=== PATIENT | male | born 1965 | race Caucasian/White ===

== ENCOUNTER → 2016-08-08 | Outpatient (CLI) | payer BC ==
[2016-08-08 10:44] LABS: EKG EKG PERFORMED
[2016-08-08 11:39] LABS: Appearance,Urine Clear (Clear); Basophils # (A) 0.1 k/uL (0-0.2); Basophils % (A) 1 %; Bilirubin,Urine Negative (Negative); CH 29.7; CHCM 33.5; Eosinophils # (A) 0.1 k/uL (0-0.7); Eosinophils % (A) 1 %; Glucose,Urine (UA) Negative (Negative); HCT 51.1 % (39.0-53.0); HDW 2.48; HGB 16.4 gm/dL (13.0-17.5); Ketones,Urine Negative (Negative); Leukocyte Esterase,Urine Negative (Negative); Luc % (Auto) 1; Lymphocytes # (A) 1.4 k/uL (1.0-4.8); Lymphocytes % (A) 19 %; MCH 28.6 pg (25.0-35.0); MCHC 32.1 g/dL (31.0-37.0); MCV 89.1 fL (80.0-100.0); Mean Platelet Volume 7.8; Monocytes # (A) 0.6 k/uL (0-1.0); Monocytes % (A) 8 %; Neutrophils # (A) 5.1 k/uL (1.3-7.7); Neutrophils % (A) 70 %; Nitrite,Urine Negative (Negative); PH, Urine 5.5 (5.0-8.0); Protein,Urine Negative (Negative); RBC 5.74 m/uL (4.30-5.90); Specific Gravity,Urine 1.019 (1.001-1.035); UA Billing (MACRO vs. MICRO) CHEM; Urobilinogen,Urine <2.0 mg/dL (<2.0); WBC 7.2 k/uL (3.8-10.6); WBC (Perox) 6.96
[2016-08-08 11:48] LABS: Prothrombin Time 10.5 sec (9.0-12.0)
[2016-08-08 12:01] LABS: ALT 41 U/L (21-72); AST 21 U/L (17-59); Alkaline Phosphatase 51 U/L (38-126); Anion Gap 12 mmol/L; Blood Urea Nitrogen 18 mg/dL (9-20); Calcium 9.9 mg/dL (8.4-10.2); Carbon Dioxide 25 mmol/L (22-30); Chloride 104 mmol/L (98-107); Glucose 104 mg/dL (74-99); Non-African American GFR(MDRD) >60 (>60 ml/min/1.73 sqM); Potassium 4.9 mmol/L (3.5-5.1); Sodium 141 mmol/L (137-145); Total Bilirubin 0.9 mg/dL (0.2-1.3); Total Protein 7.7 g/dL (6.3-8.2)
== END | disposition home or self-care (01) ==
LOC: LABPAT 10:32
PROVIDERS: ATTEND Orthopaedic Surgery Sports Medicine
DX: Z01.812 Encounter for preprocedural laboratory examination (principal); Z01.810 Encounter for preprocedural cardiovascular examination
CPT/HCPCS: 80053; 81003; 85025; 85610; 85730; 87070; 93005

== ENCOUNTER 2016-08-24 10:30 | Inpatient (IN) | payer BC ==
[2016-08-14 16:05] VITALS: BMI 31.9
[~2016-08-24 10:30] MED LIST: ACETAMINOPHEN TAB 500 MG TAB PO ONE; DEXAMETHASONE SOD PHOSPHATE 10 MG/ML 1 ML VIAL IV ONE; HYDROmorphone 1 MG/ML 1 ML SYRINGE IVP PRN; MELOXICAM 7.5 MG TAB PO ONE; MIDAZOLAM 2 MG/2 ML VIAL IV PRN; ONDANSETRON 4 MG/2 ML VIAL IVP ONE; ROPIVACAINE 246.25 MG, EPINEPHrine 0.5 MG, KETOROLAC 30 MG, cloNIDine HCL/PF 80 MCG, WA... MISCELLANE ONE; TRANEXAMIC ACID 1,000 MG in SODIUM CHLORIDE 0.9% 100 ML IVPB ONE; ceFAZolin 2 GM in SODIUM CHLORIDE 0.9% 100 ML IVPB ONE
[2016-08-24] MEDS: LACTATED RINGERS 1,000 ML IV SCH ×2 (11:16→20:55)
[2016-08-24] MEDS ORDERED: PROPOFOL 10 MG/ML 20 ML VIAL IV ONE (12:33)
[2016-08-24] MEDS ORDERED: LIDOCAINE 1% INJ 10MG/ML (20 ML MDV) ONE (12:33)
[2016-08-24] MEDS ORDERED: TRANEXAMIC ACID 1,000 MG/10 ML VIAL ONE (12:33)
[2016-08-24] MEDS ORDERED: SODIUM CHLORIDE 0.9% 100 ML BAG ONE (12:33)
[2016-08-24] MEDS ORDERED: MIDAZOLAM 2 MG/2 ML VIAL ONE (12:33)
[2016-08-24] MEDS ORDERED: fentaNYL (PF) 50 MCG/ML 2 ML AMP ONE (12:33)
[2016-08-24] MEDS ORDERED: ceFAZolin 3,000 MG in SODIUM CHLORIDE 0.9% IRRIGATIO 3,000 ML IRRIGATION ONE (13:18)
[2016-08-24] MEDS ORDERED: LACTATED RINGERS 1,000 ML IV ONE (13:23)
[2016-08-24] MEDS ORDERED: NALOXONE 0.4 MG/ML 1 ML VIAL IV PRN (14:41)
[2016-08-24] MEDS ORDERED: PROMETHAZINE INJ 6.25 MG in SODIUM CHLORIDE 0.9% 50 ML IVPB PRN (14:41)
[2016-08-24] MEDS ORDERED: METOCLOPRAMIDE 5 MG/ML 2 ML VIAL IVP PRN (14:41)
[2016-08-24] MEDS ORDERED: NALBUPHINE 10 MG/ML AMPUL IV PRN (14:41)
[2016-08-24] MEDS ORDERED: MORPHINE SULFATE 4 MG/ML SYRINGE IVP PRN (14:41)
[2016-08-24] MEDS ORDERED: MAGNESIUM HYDROXIDE 2,400 MG/10 ML CUP PO PRN (14:48)
[2016-08-24] MEDS ORDERED: TEMAZEPAM 15 MG CAP PO PRN (14:48)
[2016-08-24] MEDS ORDERED: ACETAMINOPHEN TAB 325 MG TAB PO PRN (14:48)
[2016-08-24] MEDS ORDERED: traMADol 50 MG TAB PO PRN (14:48)
[2016-08-24] MEDS ORDERED: ONDANSETRON 4 MG/2 ML VIAL IVP PRN (14:48)
[2016-08-24] MEDS ORDERED: HYDROmorphone 1 MG/ML 1 ML SYRINGE IVP PRN ×3 (14:48)
[2016-08-24] MEDS ORDERED: BISACODYL 10 MG SUPP RECTAL PRN (14:48)
[2016-08-24] MEDS ORDERED: HYDROcodone/APAP 7.5-325MG 1 EACH TAB PO PRN ×2 (14:48)
[2016-08-24] MEDS ORDERED: DIAZEPAM 5 MG TAB PO PRN (14:48)
[2016-08-24] MEDS ORDERED: NA PHOS,M-B/NA PHOS,DI-BA 133 ML ENEMA RECTAL PRN (14:48)
--- NOTE | 2016-08-24 15:15 | XR ---
EXAMINATION TYPE: XR knee limited LT DATE OF EXAM: 08/24/2016 3:09 PM COMPARISON: NONE HISTORY: Post op FINDINGS: There is a prosthetic knee in near anatomic alignment. There is soft tissue edema and emphysema. IMPRESSION: 1. Postoperative change. Appears in near-anatomic alignment
[2016-08-24] MEDS: diphenhydrAMINE 50 MG/ML 1 ML VIAL IVP PRN ×2 (17:00→23:01)
--- NOTE | 2016-08-24 19:19 | PN ---
DATE OF SERVICE: 08/24/2016 Lowell is status post left total knee arthroplasty. He is resting comfortably in the bed, up on the floor. His pain is very well controlled. He has intact flexion, extension. Inversion, eversion at the ankle is intact. Flexion-extension of all of his toes. He has an intact lateral, medial, plantar and first dorsal web space sensation. He has a palpable 2+ posterior tibial pulse. IMPRESSION: Status post left total knee arthroplasty. RECOMMENDATIONS: Lowell is doing quite well early on. We will continue with DVT prophylaxis. He will start with physical therapy tomorrow. He will get standard postoperative dose of Ancef. All of his questions and his 's questions were answered to their satisfaction. We will continue to follow.
[2016-08-24] MEDS: ceFAZolin 2 GM in SODIUM CHLORIDE 0.9% 100 ML IVPB SCH (20:54)
[2016-08-24] MEDS ORDERED: SENNOSIDES-DOCUSATE SODIUM 1 EACH TAB PO SCH (21:00)
[2016-08-24] MEDS: ASPIRIN 325 MG TAB PO SCH (22:05)
--- NOTE | 2016-08-24 23:04 | OP ---
DATE OF SERVICE: 08/24/2016 SURGEON: AMANDA GODDARD MD DEAN OF STUDENT SERVICES: TAYLOR RAYA PA-C PREOPERATIVE DIAGNOSIS: Left knee osteoarthrosis. POSTOPERATIVE DIAGNOSIS: Left knee osteoarthrosis. OPERATION: Left total knee arthroplasty. ANESTHESIA: Spinal with sedation. ESTIMATED BLOOD LOSS: 100 mL TOURNIQUET TIME: 64 minutes @250 mmHg. SPECIMENS REMOVED: COMPLICATIONS: None apparent. DRAINS: None. DISPOSITION: Post-Anesthesia Care Unit. OPERATIVE FINDINGS: INDICATIONS: Lowell is a 51-year-old male with long-standing history of left knee pain. History and physical examination are consistent with advanced left knee osteoarthrosis. He has been through significant nonoperative treatment as well as operative treatment quite a bit of time ago. Further treatment options were discussed, and he decided to go forward with a left total knee arthroplasty. The risks of the procedure were discussed with him in detail. These risks include but are not limited to risk of infection, nerve damage, bleeding, pain, and a small risk of deep vein thrombosis which could lead to fatal pulmonary embolism. There is also a risk of loosening of the implant which could require revision operation. The patient understands these risks. All of his questions were answered to his satisfaction. Appropriate informed consent was obtained. DESCRIPTION OF THE PROCEDURE: The patient was identified in the preoperative holding area. Surgical site was marked by both the patient and myself. He was given 2 grams of Ancef IV for prophylactic purposes. He was then transferred to the operative suite, where he was placed supine on the operating table. Spinal anesthetic was then administered and dosed by the anesthesia department without apparent complication. Examination under anesthesia was then performed. He had full extension. He had 105 degrees of flexion, and the medial collateral ligament, lateral collateral ligament and posterior cruciate ligaments were stable. Tourniquet was then placed high on the left upper thigh, well padded in preparation for surgery. The patient's left lower extremity was then prepped and draped in the usual sterile fashion. Standard surgical pause was then undertaken to ensure that we were operating on the correct site and that appropriate preoperative antibiotics had been given. All staff in the room were in agreement, and we proceeded. The outlines of the patella were then marked with a surgical pen. A planned 12 cm vertical incision centered over the patella was then marked with a surgical pen. The leg was then exsanguinated with an Esmarch dressing. The knee was then flexed and tourniquet inflated to 250 mmHg. The total tourniquet time for the procedure was 64 minutes. Incision was then made with a 10 blade scalpel. Dissection was carried down sharply to the overlying fascia. Great care was taken to minimize the skin flaps. The knee was then exposed using a standard medial parapatellar approach. A small cuff of quadriceps tendon was then left for suturing. He was in a bit of varus preoperatively. A standard medial release was then made. Superficial medial collateral ligament was dissected off the bone around to the posterior aspect of the proximal tibia. The medial meniscus was also excised as well. The lateral meniscus was also released anteriorly. The leg was then externally rotated. The patella was then everted and the knee was flexed. Retractors were then placed to protect the collateral ligaments. I then proceeded to remove the infrapatellar fat pad. This was excised sharply tangentially with the fibers of the patellar tendon. I then proceeded to remove the peripheral osteophytes. This was done with a rongeur. I then proceeded with the distal I then proceeded with the distal femoral resection. He did have near-full extension. A planned 9 mm resection was then done. The femoral canal was then entered in the midline of the femur approximately 10 mm anterior to the origin of the posterior cruciate ligament. The karen was then advanced down the center of the femur and the karen placed intramedullary. Based on preoperative radiographs, the angle between the anatomic and mechanical axis of the femur was approximately 4 to 5 degrees. The valgus angle of the distal femoral cutting guide was then set at 4 degrees for the left knee. The distal femoral cutting guide was then advanced over the intramedullary karen. This was seated firmly against the femur. I then, as mentioned, planned to take 9 mm off the distal femur. The cutting block was then secured onto the femur with pins. Jig was then removed and the distal femoral cut was made through the slot of the block. The pins were then removed and the distal femoral cutting block was removed. The accuracy of the distal femoral cuts was checked with 2 flat bars. I then proceeded with femoral sizing. The posterior referencing sizing guide was held firmly against the resected distal surface of the femur. Posterior condyles were resting on the posterior plane of the guide. Sizing stylus was then placed on the anterior femur. The size was measured as a size 9. I then assessed for femoral rotation. The plan was for 3 degrees of external rotation. Three degrees of external rotation was placed onto the jig. These holes were then marked. I then confirmed the rotation by 3 separate methods. This was done using the epicondylar axis as well as Whitesides line and posterior referencing. It was deemed that the external rotation was proper. I then went forward with placing the femoral cutting block. This was placed over the previously placed pinholes. The florence wing was then placed onto the anterior slots to ensure that we would not notch the anterior femur with the anterior femoral cut. I then proceeded with the anterior femoral cut. This was flush with the anterior cortex of the femur. Posterior cuts were then made followed by the anterior chamfer cut and then the posterior chamfer cut. Cutting block was then removed. Throughout the resection, the collateral ligaments were protected with retractors. I then placed a trial size 9 femur. It fit very nice medial to lateral and fit flush with the distal end of the femur. The drill holes were then made. I then proceeded with the tibial cut. I planned for a cruciate-retaining knee. The guide was placed and set for varus, valgus and for slope. The height was set for approximately 2 mm resection from the medial tibial plateau, which was the lower side. I was happy with the alignment and the amount of resection. The cutting block was then pinned to the proximal tibia. The alignment karen was removed and the proximal tibia was resected with a reciprocating saw. Again this was done with retractors protecting the collateral ligaments as well as the posterior cruciate ligament. I then proceeded to evaluate the flexion and extension gaps. A 10 mm block was placed. The flexion and extension gaps were equal. I then proceeded with resection of the posterior osteophytes. There were very minimal posterior osteophytes. This was done using curved osteotome. This resected the posterior osteophytes, and the posterior capsule stripping was also done off the posterior aspect of the femur. The osteophytes were removed. I then proceeded with resection of the patella. The thickness of the patella was then measured using the caliper. The thickness was 24 mm. The thickness of the anticipated patellar dome was taken into account. Resection was then performed and confirmed to be equal in 4 quadrants using the caliper. Approximately 14 mm of bone remained after the resection. A 32 x 8.5 mm standard patellar trial was then placed. The holes were then drilled and the trial was then placed. I then proceeded with sizing the tibial plate. A size E tibial plate fit very nicely. I then placed a trial femur with tibial tray and the patellar button. A 10 mm trial tibial insert was also placed. The components fit very nicely. He had full extension and flexion. Extension and flexion gaps were equal and stable to both varus and valgus stress. The patella tracked appropriately. Tibial tray rotation was marked with a Bovie. T his was externally rotated properly. I then proceeded with the tibial preparation. I first drilled the femoral holes and removed the femoral component. The tibial tray was then set for proper external rotation as well as medial and lateral placement onto the tibia. It was then pinned into placed. I then proceeded with punching the keel. I then decided to proceed with cementing of all of our components. The knee was thoroughly irrigated with sterile saline solution via pulse lavage. The lateral genicular artery was identified and cauterized. All blood was removed from the bone of the tibia, femur and patella with pulse lavage. I then proceeded with cementing. Two packs of antibiotic bone cement were prepared on the back table by the surgical elastic knitter. I then proceeded with cementing of the tibia first. The cement was then cemented into the keel as well as deeply seated in the bone. A second coat of cement was then placed. The tibia was them impacted into place. Excess cement was removed with Cushings and Jokers. I then proceeded with cementing of the femoral component. The femoral component was also cemented using standard technique. Excess cement was removed. A 10 mm trial insert was then placed into the knee. It was brought into full extension with a constant axial load placed until the cement had hardened. The patellar component was then cemented. This was held firmly with the compressive device until the cement had dried. When the cement had dried, the knee was taken out of extension. All excess cement was removed from around the prosthesis. A then trialed the knee with a 10 mm insert. Flexion and extension gaps were appropriate. The knee was stable. It came into full extension. I decided to go forward with a 10 mm cross-linked cruciate-retaining tibial insert. Polyethylene was then placed onto the tibial tray and the pin locked. The knee was then reduced. The knee was again further irrigated with sterile saline solution with antibiotic added. The tourniquet was then deflated. Total tourniquet time for the case was 64 minutes at 250 mmHg. Final components were a Yudy Persona size 9 cruciate-retaining femoral component, a size E tibial tray, and a 10 mm medial congruent cruciate-retaining polyethylene insert. A 32 x 8.5 mm patellar button was also cemented. I then proceeded with closure. Again the knee was thoroughly irrigated. Quadriceps tendon and the medial retinaculum were reapproximated with #2 Ethibond suture. The extensor mechanism was then closed with a running #2 Quill suture. Subcutaneous tissues were then closed with 2-0 Vicryl interrupted suture. The skin was closed with a running 3-0 Quill suture. Dermabond was applied to the incision. Sterile compressive dressings were then applied. All sponge and needle counts were deemed correct prior to closure. The patient tolerated the procedure without apparent complication. He was transferred to the recovery room in stable condition.
[2016-08-25] MEDS: ceFAZolin 2 GM in SODIUM CHLORIDE 0.9% 100 ML IVPB SCH (05:17)
[2016-08-25] MEDS: diphenhydrAMINE 50 MG/ML 1 ML VIAL IVP PRN (05:25)
[2016-08-25] MEDS: LACTATED RINGERS 1,000 ML IV SCH ×3 (05:28→12:28)
[2016-08-25 07:19] LABS: Basophils % (A) 0 %; CH 29.3; CHCM 32.7; Eosinophils % (A) 0 %; HCT 40.1 % (39.0-53.0); HDW 2.47; Luc % (Auto) 1; Lymphocytes # (A) 1.5 k/uL (1.0-4.8); Lymphocytes % (A) 11 %; MCH 28.9 pg (25.0-35.0); MCHC 32.1 g/dL (31.0-37.0); Mean Platelet Volume 7.7; Monocytes # (A) 0.7 k/uL (0-1.0); Monocytes % (A) 5 %; Neutrophils # (A) 11.3 k/uL (1.3-7.7); Neutrophils % (A) 83 %; RBC 4.46 m/uL (4.30-5.90); RDW 12.9 % (11.5-15.5); WBC 13.6 k/uL (3.8-10.6); WBC (Perox) 13.51
[2016-08-25 07:21] LABS: HGB 12.9 gm/dL (13.0-17.5)
[2016-08-25] MEDS ORDERED: FAMOTIDINE 20 MG TAB PO PRN (08:23)
[2016-08-25] MEDS: ASPIRIN 325 MG TAB PO SCH (08:57)
[2016-08-25] MEDS: hydrOXYzine PAMOATE 25 MG CAP PO PRN ×2 (08:57→13:01)
[2016-08-25] MEDS ORDERED: EZETIMIBE 10 MG TAB PO SCH (09:00)
[2016-08-25] MEDS ORDERED: NON-FORMULARY DRUG (Ubidecarenone [Co Q-10] 100 MG) PO SCH (09:00)
--- NOTE | 2016-08-25 09:13 | P.DS ---
Providers Date of admission: 08/24/16 10:30 Expected date of discharge: 08/25/16 Attending physician: Roberto Hooper Consults: 08/24/16 14:48 Consult Physician Routine Consulting Provider: Chapin Schwartz Consult Reason/Comments: post op medical management Do you want consulting provider notified?: Yes Primary care physician: Chapin Schwartz - Discharge Diagnosis(es) (1) Status post total knee replacement, left Current Visit: Yes Status: Acute (2) Knee osteoarthritis Current Visit: Yes Status: Acute Hospital Course: This is a 51-year-old male who was last seen with complaint of continued left knee pain. The patient has a known history of degenerative arthritis of the left knee and presents to discuss surgical options. After discussion and consideration the patient elects to proceed with total left knee arthroplasty. The patient is seen preoperatively by his family physician and cleared for surgery. The patient is admitted to [facility] for total left knee arthroplasty. The procedures performed without complication or sequelae. He is doing well postoperatively. Vital signs are stable at discharge. Labs are stable at discharge. the patient is ambulating well with walker with minimal assistance. The patient is discharged to home on postop day #1 pending medical clearance. Please see orders and refer to the med rec for accurate list of medications. Plan - Discharge Summary New Discharge Prescriptions: Aspirin 325 mg PO BID #60 tab Docusate [Colace] 100 mg PO BID #60 capsule HYDROcodone/APAP 7.5-325MG [[place] 7.5-325] 1 - 2 each PO Q6HR PRN #90 tab PRN Reason: Pain Discharge Medication List Ibuprofen [Advil] 200 mg PO Q8HR PRN 06/25/15 [History] Naproxen Sodium [Aleve] 220 mg PO BID PRN 06/25/15 [History] Simvastatin [Zocor] 40 mg PO HS 06/25/15 [History] Ubidecarenone [Co Q-10] 100 mg PO DAILY 06/25/15 [History] Famotidine [Pepcid AC] 10 mg PO DAILY PRN 08/14/16 [History] Fenofibrate 160 mg PO HS 08/14/16 [History] Aspirin 325 mg PO BID #60 tab 08/24/16 [Rx] Docusate [Colace] 100 mg PO BID #60 capsule 08/24/16 [Rx] Ezetimibe [Zetia] 10 mg PO DAILY 08/24/16 [History] HYDROcodone/APAP 7.5-325MG [[place] 7.5-325] 1 - 2 each PO Q6HR PRN #90 tab [Rx] Follow up Appointment(s)/Referral(s): Roberto Hooper MD [STAFF PHYSICIAN] - 2 Weeks Activity/Diet/Wound Care/Special Instructions: weight bear as tolerated F/U with Dr. Hooper in office Take meds as directed Keep wound clean and dry
--- NOTE | 2016-08-25 09:54 | P.PN ---
Progress Note - Text Date:08/25 Time:958 Patient is status post tkr. Patient seen this morning with VAS score of 2. c/o of pruritus, no c/o nausea/vomiting, comfortable and doing well.
[2016-08-25] MEDS ORDERED: MULTIVITAMINS, THERA 1 EACH TAB PO SCH (12:00)
[2016-08-25 12:11] VITALS: BP 120/75; PULSE 77; RESP 16; TEMP 98.9
[2016-08-25] MEDS ORDERED: ATORVASTATIN 20 MG TAB PO SCH (21:00)
[2016-08-25] MEDS ORDERED: FENOFIBRATE 160 MG TAB PO SCH (21:00)
== END 2016-08-25 15:08 | disposition home health service (06) | DRG 470 ==
LOC: 2ORMAIN 10:30 → 3SUR 14:56
PROVIDERS: ADMIT Orthopaedic Surgery Sports Medicine; ATTEND Orthopaedic Surgery Sports Medicine
PROC: 0SRD0J9 Replacement of Left Knee Joint with Synthetic Substitute, Cemented, Open Approach (ICD-10-PCS; principal; 2016-08-24 12:30)
DX: M17.12 Unilateral primary osteoarthritis, left knee (principal); E78.5 Hyperlipidemia, unspecified; Z79.1 Long term (current) use of non-steroidal anti-inflammatories (NSAID); Z79.899 Other long term (current) drug therapy
CPT/HCPCS: 85025; 88300

== ENCOUNTER 2021-08-23 08:43 | Day surgery (SDC) | payer BC ==
[2021-08-18 12:30] VITALS: BMI 31.8
[~2021-08-23 08:43] MED LIST changes: -ACETAMINOPHEN TAB 500 MG TAB PO ONE; -DEXAMETHASONE SOD PHOSPHATE 10 MG/ML 1 ML VIAL IV ONE; -HYDROmorphone 1 MG/ML 1 ML SYRINGE IVP PRN; +LACTATED RINGERS 1,000 ML IV SCH; +LIDOCAINE 1% (10MG/ML) FOR IV START INTRADERMA PRN; -MELOXICAM 7.5 MG TAB PO ONE; -MIDAZOLAM 2 MG/2 ML VIAL IV PRN; -ONDANSETRON 4 MG/2 ML VIAL IVP ONE; -ROPIVACAINE 246.25 MG, EPINEPHrine 0.5 MG, KETOROLAC 30 MG, cloNIDine HCL/PF 80 MCG, WA... MISCELLANE ONE; -TRANEXAMIC ACID 1,000 MG in SODIUM CHLORIDE 0.9% 100 ML IVPB ONE; -ceFAZolin 2 GM in SODIUM CHLORIDE 0.9% 100 ML IVPB ONE
[2021-08-23 09:07] VITALS: RESP 16; TEMP 97.5
[2021-08-23] MEDS ORDERED: PROPOFOL 10 MG/ML 20 ML VIAL IV ONE (09:54)
--- NOTE | 2021-08-23 10:08 | P.GSHP ---
History of Present Illness H&P Date: 08/23/21 Chief Complaint: Rectal bleeding, history of polyps 56-year-old male here today for colonoscopy. Last colonoscopy 6 years ago. Patient with history of adenomatous polyps. Over the last 4 months is had increased episodes of bright red blood per rectum. No abdominal pain. No change in bowel habits. Past Medical History Past Medical History: Hyperlipidemia Additional Past Medical History / Comment(s): hx hiatal hernia, psoriasis, blood in stool recently, hx. 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, colonoscopy Past Anesthesia/Blood Transfusion Reactions: No Reported Reaction Smoking Status: Current every day smoker - Past Family History Father Family Medical History: Cancer Medications and Allergies Home Medications Medication Instructions Recorded Confirmed Type Simvastatin [Zocor] 40 mg PO HS 06/25/15 08/18/21 History Fenofibrate 160 mg PO HS 08/14/16 08/18/21 History Aspirin [Story Aspirin EC] 81 mg PO DAILY 08/18/21 08/18/21 History Allergies Allergy/AdvReac Type Severity Reaction Status Date / Time No Known Allergies Allergy Verified 08/18/21 12:18 Surgical - Exam Vital Signs Temp Pulse Resp BP Pulse Ox 97.5 F L 115 H 16 153/95 97 08/23/21 09:02 08/23/21 09:02 08/23/21 09:02 08/23/21 09:02 08/23/21 09:02 Physical exam: General: Well-developed, well-nourished HEENT: Normocephalic, sclerae nonicteric Abdomen: Nontender, nondistended Extremities: No edema Neuro: Alert and oriented Assessment and Plan (1) Rectal bleeding Narrative/Plan: Will proceed with colonoscopy at this time Current Visit: Yes Status: Acute Code(s): K62.5 - HEMORRHAGE OF ANUS AND RECTUM SNOMED Code(s): 48189528
--- NOTE | 2021-08-23 10:21 | P.PCN ---
Date of Procedure: 08/23/21 Procedure(s) Performed: PREOPERATIVE DIAGNOSIS: Rectal bleeding, history of polyps POSTOPERATIVE DIAGNOSIS: Small sigmoid polyp, internal hemorrhoids PROCEDURE: Colonoscopy with snare polypectomy ANESTHESIA: MAC SURGEON: Ralph Granger M.D. SPECIMENS: Sigmoid colon polyp ENDOSCOPIC PROCEDURE: The patient was placed on the endoscopy table in the left decubitus position. The Olympus colonoscope was inserted into the anus and passed under direct visualization to the base of the cecum. The appendiceal o rifice was visualized. From that point the scope was slowly withdrawn inspecting all surfaces carefully. There were no neoplastic inflammatory or polypoid lesions throughout the cecum, ascending, transverse, and descending colon. In the sigmoid there was a small polyp that was removed using snare with cautery technique. The remainder of the sigmoid and rectum appeared normal. There was no visible diverticulosis. Retroflexion at the anus and digital rectal examination revealed small internal hemorrhoids without any evidence of recent or active bleeding. The patient was taken to the recovery room in stable condition per anesthesia guidelines. RECOMMENDATIONS: Resume diet. Follow-up colonoscopy in 5 years.
[2021-08-23 10:39] VITALS: BP 114/79; PULSE 95
== END 2021-08-23 11:06 | disposition home or self-care (01) ==
LOC: ORWHC2ENDO 08:43
PROVIDERS: ATTEND Surgery
DX: D12.5 Benign neoplasm of sigmoid colon (principal); K64.8 Other hemorrhoids; E78.5 Hyperlipidemia, unspecified; F17.200 Nicotine dependence, unspecified, uncomplicated; Z80.9 Family history of malignant neoplasm, unspecified; Z79.82 Long term (current) use of aspirin; Z86.010 Personal history of colon polyps
CPT/HCPCS: 45385; 88305; J2704